=== PATIENT | female | born 1990 | race African-American/Black ===

== ENCOUNTER 2016-07-19 11:05 | Emergency (ER) | payer OTHER ==
[2016-07-19 11:46] LABS: URINE SOURCE CLEAN CATCH
[2016-07-19 11:49] LABS: URINE APPEARANCE CLOUDY; URINE BILIRUBIN NEG (NEG); URINE BLOOD 3+ (NEG); URINE COLOR YELLOW; URINE GLUCOSE NEG (NORM); URINE KETONE NEG (NEG); URINE LEUKOCYTE ESTERASE 3+ (NEG); URINE NITRATE POS (NEG); URINE PROTEIN 2+ (NEG)
[2016-07-19 11:51] LABS: MICRO INDICATED? YES
[2016-07-19 11:52] LABS: URINE RBC 50-100 /[HPF] (0-2); URINE WBC 200-300 /[HPF] (0-5)
[2016-07-19 11:53] LABS: CULTURE INDICATED? YES; URINE BACTERIA 3+ (NEG); URINE SQUAMOUS EPITHELIAL CELL MANY /[HPF]; URINE TRANSITIONAL EPI CELLS FEW /[HPF]
[2016-07-19] MEDS ORDERED: CIPRO (12:19)
== END 2016-07-19 12:30 | disposition home or self-care (01) ==
LOC: SED 11:05
PROVIDERS: Nurse Practitioner
DX: S39.012A Strain of muscle, fascia and tendon of lower back, initial encounter (principal); N39.0 Urinary tract infection, site not specified; M54.42 Lumbago with sciatica, left side; X50.9XXA Other and unspecified overexertion or strenuous movements or postures, initial encounter; Y92.009 Unspecified place in unspecified non-institutional (private) residence as the place of occurrence of the external cause
CPT/HCPCS: 81003; 84703; 87086; 87088; 87186; 96372; 99283; J1885